=== PATIENT | female | born 1995 | race Caucasian/White ===

== ENCOUNTER 2016-09-08 03:53 | Emergency (ER) | payer BC, MEDICAID ==
[2016-09-08 04:12] VITALS: BP 138/88
[2016-09-08] MEDS ORDERED: cefTRIAXone 1 GM, Lidocaine 1% 2.1 ML IM ONE ×2 (04:27)
--- NOTE | 2016-09-08 04:34 | EDM.PDOC ---
ED HPI GENERAL MEDICAL PROBLEM - General Chief Complaint: ENT Problem Stated Complaint: RT EAR INFECTION / FELT LIKE EARDRUM BROKE Time Seen by Provider: 09/08/16 04:29 Source of Information: Reports: Patient, Family History Limitations: Reports: No Limitations - History of Present Illness INITIAL COMMENTS - FREE TEXT/NARRATIVE: pt arrived with severe pain in the left ear. She noted blood from theear canal. 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 ) Respiratory: Reports: No Symptoms Cardiovascular: Reports: No Symptoms Endocrine: Reports: No Symptoms GI/Abdominal: Reports: No Symptoms : Reports: No Symptoms Musculoskeletal: Reports: No Symptoms ED EXAM, ENT - Physical Exam Exam: See Below Text/Narrative:: Pt arrived with severe pain in the rt ear. This started yestrday. Exam Limited By: No Limitations General Appearance: Alert, Moderate Distress Ears: Other ( rt ear drum is red. there is bloody drainage and probably a small perforation, The left drum is also red and has some blood behind the drum. ) Nose: Normal Inspection Mouth/Throat: Normal Inspection Head: Atraumatic Course - Vital Signs Last Recorded V/S: Last Vital Signs Temp 36.3 C 09/08/16 04:10 Pulse 67 09/08/16 04:10 Resp 16 09/08/16 04:10 BP 138/88 09/08/16 04:10 Pulse Ox 96 09/08/16 04:10 - Orders/Labs/Meds Meds: Medications Discontinued Medications Generic Name Dose Route Start Last Admin Trade Name Freq PRN Reason Stop Dose Admin Ceftriaxone Sodium 1 gm/ 0 gm 09/08/16 04:27 Lidocaine HCl 2.1 ml IM 09/08/16 04:28 ONETIME ONE - Re-Assessments/Exams Free Text/Narrative Re-Assessment/Exam: 09/08/16 04:34 pt ws given rocephn 1 gm. Departure - Departure Time of Disposition: 04:34 Disposition: Home, Self-Care 01 Condition: Fair Clinical Impression: Bilateral otitis media, Perforation of ear drum - Discharge Information Forms: ED Department Discharge Care Plan Goals: augmentin 875 bid. motrin 600mg q6h prn for pain see regular in 7-8 days to recheck the ears.
[2016-09-08] MEDS ORDERED: Acetaminophen/HYDROcodone 325-5 MG Tab PO ONE (04:36)
== END 2016-09-08 04:53 | disposition home or self-care (01) ==
LOC: JP.ED 03:53
DX: H66.93 Otitis media, unspecified, bilateral (principal); H72.93 Unspecified perforation of tympanic membrane, bilateral
CPT/HCPCS: 96372; 99283; A9270; J0696

== ENCOUNTER 2017-06-21 06:11 | Emergency (ER) | payer BC, MEDICAID ==
[2017-06-21 06:27] VITALS: BP 148/63
[2017-06-21] MEDS ORDERED: Ondansetron 4 MG Tab.DIS PO ONE (06:36)
[2017-06-21] MEDS ORDERED: Ketorolac 60 MG/2 ML SDV IM ONE (06:41)
--- NOTE | 2017-06-21 06:50 | EDM.PDOC ---
ED HPI GENERAL MEDICAL PROBLEM - General Chief Complaint: ENT Problem Stated Complaint: HEADACHE Time Seen by Provider: 06/21/17 06:35 Source of Information: Reports: Patient, Old Records, RN History Limitations: Reports: No Limitations - History of Present Illness INITIAL COMMENTS - FREE TEXT/NARRATIVE: 22 yo female had her wisdom teeth out this past Friday and is taking hydrocodone and ibuprofen for that pain with good results. Now has a MORALES with nausea and vomiting that is not relieved with these meds so comes to the ER. The last ibuprofen dose was 10 pm last night. Has nothing for nausea relief. No fever. Is a little light-headed with standing. Onset: Gradual Onset Date: 06/20/17 Duration: Day(s): (1) Location: Reports: Head Quality: Reports: Ache Severity: Moderate Improves with: Reports: None Worsens with: Reports: Other (? time) Context: Reports: Other (taking hydrodone without relief. ) Associated Symptoms: Reports: Headaches, Nausea/Vomiting. Denies: Fever/Chills Treatments KENNEL HAND: Reports: Other (see below) (none in last 8.5 hrs. ) mouth Pain Score (Numeric/FACES): 10 - Related Data Allergies Allergy/AdvReac Type Severity Reaction Status Date / Time No Known Allergies Allergy Verified 06/21/17 06:18 Home Meds: Home Meds Amoxicillin 500 mg PO TID 06/21/17 [History] Citalopram Hydrobromide [Celexa] 40 mg PO DAILY 06/21/17 [History] Hydrocodone/Acetaminophen [Hydrocodon-Acetaminophen 5-325] 1 tab PO ASDIRECTED PRN 06/21/17 [History] Levothyroxine 125 mcg PO DAILY 06/21/17 [History] Ondansetron [Zofran ODT] 4 mg PO Q6H PRN #7 tab.dis 06/21/17 [Rx] Past Medical History HEENT History: Reports: Other (See Below) Other HEENT History: hx of ear infections recurrent 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: Neurological History: Reports: Concussion Psychiatric History: Reports: Anxiety Endocrine/Metabolic History: Reports: Hyperthyroidism, Obesity/BMI 30+ - Past Surgical History HEENT Surgical History: Reports: Oral Surgery Female Surgical History: Reports: Other (See Below) Other Female Surgeries/Procedures: salpingoectomy Social & Family History - Tobacco Use Smoking Status *Q: Never Smoker - Caffeine Use Caffeine Use: Reports: Coffee, Soda - Recreational Drug Use Recreational Drug Use: No ED ROS ENT - Review of Systems Review Of Systems: See Below Constitutional: Reports: No Symptoms HEENT: Reports: No Symptoms Respiratory: Reports: No Symptoms Cardiovascular: Reports: No Symptoms, Lightheadedness (mild) GI/Abdominal: Reports: Nausea, Other : Reports: No Symptoms Musculoskeletal: Reports: No Symptoms Skin: Reports: No Symptoms Neurological: Reports: Headache Psychiatric: Reports: No Symptoms ED EXAM, ENT - Physical Exam Exam: See Below Exam Limited By: No Limitations General Appearance: Alert, WD/WN, No Apparent Distress Eye Exam: Bilateral Eye: Normal Inspection, PERRL Ears: Normal External Exam, Normal Canal, Hearing Grossly Normal, Normal TMs Nose: Normal Inspection Mouth/Throat: Normal Inspection, Normal Oropharynx, Other (no facial swelling). No: Dental Pain, Dental Tenderness, Throat Swelling, Tongue Swelling Head: Atraumatic, Normocephalic. No: Facial Swelling, Facial Tenderness Neck: Normal Inspection, Supple, Non-Tender Respiratory/Chest: No Respiratory Distress, Lungs Clear, Normal Breath Sounds, No Accessory Muscle Use Cardiovascular: Regular Rate, Rhythm, No Edema GI/Abdominal: Normal Bowel Sounds, Soft Extremities: Normal Inspection Neurological: Alert, Oriented, CN II-XII Intact, Normal Cognition, No Motor/ Sensory Deficits Psychiatric: Normal Affect, Normal Mood Skin: Warm, Dry, Intact, Normal Color, No Rash Lymphatic: No Adenopathy Course - Vital Signs Text/Narrative:: Toradol 60 mg IM, Zofran ODT 4 mg SL Last Recorded V/S: Last Vital Signs Temp 36.7 C 06/21/17 06:25 Pulse 80 06/21/17 06:25 Resp 17 06/21/17 06:25 BP 148/63 H 06/21/17 06:25 Pulse Ox 97 06/21/17 06:25 - Orders/Labs/Meds Meds: Medications Discontinued Medications Generic Name Dose Route Start Last Admin Trade Name Freq PRN Reason Stop Dose Admin Ketorolac Tromethamine 60 mg 06/21/17 06:41 Toradol IM 06/21/17 06:42 ONETIME ONE Ondansetron HCl 4 mg 06/21/17 06:36 06/21/17 06:42 Zofran Odt PO 06/21/17 06:37 4 mg ONETIME ONE Administration Departure - Departure Time of Disposition: 06:53 Disposition: Home, Self-Care 01 Condition: Fair Clinical Impression: Headache Qualifiers: Headache type: unspecified Headache chronicity pattern: acute headache Intractability: not intractable Qualified Code(s): R51 - Headache - Discharge Information Prescriptions: Ondansetron [Zofran ODT] 4 mg PO Q6H PRN #7 tab.dis PRN Reason: Nausea Referrals: PCP,None [Primary Care Provider] - Forms: ED Department Discharge Additional Instructions: Take Zofran as directed for nausea relief. Try taking acetaminophen 1000 mg every 6 hrs and ibuprofen 600 mg every 6 hrs with food instead of the hydrocodone for pain relief. Drink enough fluids so that your urine is light yellow in color, this alone will decrease MORALES. Rest today. Recheck in the cliniic if not improving.
== END 2017-06-21 07:02 | disposition home or self-care (01) ==
LOC: JP.ED 06:11
DX: R51 Headache (principal); E03.9 Hypothyroidism, unspecified; E66.9 Obesity, unspecified; Z79.899 Other long term (current) drug therapy
CPT/HCPCS: 96372; 99284; A9270; J1885

== ENCOUNTER 2017-06-27 16:50 | Emergency (ER) | payer BC, MEDICAID ==
[2017-06-27 17:51] VITALS: BP 136/66
[2017-06-27] MEDS ORDERED: Lidocaine 1% with EPINEPHrine 1:100,000 50 ML MDV INFILT STA (18:29)
--- NOTE | 2017-06-27 18:35 | EDM.PDOC ---
ED HPI GENERAL MEDICAL PROBLEM - General Chief Complaint: ENT Problem Stated Complaint: MOUTH BLEEDING Time Seen by Provider: 06/27/17 18:15 Source of Information: Reports: Patient History Limitations: Reports: No Limitations - History of Present Illness INITIAL COMMENTS - FREE TEXT/NARRATIVE: Shante presents today with complaints of bleeding status post wisdom teeth removal. She reports bleeding from her left lower site since 0300 today. She states she has tried to pack the area to help. She denies trauma or injury, eating sharp/cruchy food. 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: Neurological History: Reports: Concussion Psychiatric History: Reports: Anxiety Endocrine/Metabolic History: Reports: Hyperthyroidism, Obesity/BMI 30+ - Past Surgical History HEENT Surgical History: Reports: Oral Surgery Female Surgical History: Reports: Tubal Ligation, Other (See Below) Other Female Surgeries/Procedures: salpingoectomy Social & Family History - Tobacco Use Smoking Status *Q: Never Smoker - Caffeine Use Caffeine Use: Reports: Coffee, Soda ED ROS ENT - Review of Systems Review Of Systems: See Below Constitutional: Denies: Fever, Chills HEENT: Reports: Other (She complains of bleeding to left lower wisdom tooth removal and pain to site with packing). Denies: Ear Pain, Throat Pain, Throat Swelling Respiratory: Denies: Shortness of Breath, Wheezing, Cough, Sputum, Hemoptysis Cardiovascular: Reports: No Symptoms Endocrine: Reports: No Symptoms GI/Abdominal: Reports: No Symptoms : Reports: No Symptoms Musculoskeletal: Reports: No Symptoms Skin: Reports: No Symptoms Neurological: Reports: No Symptoms Psychiatric: Reports: No Symptoms Hematologic/Lymphatic: Reports: No Symptoms Immunologic: Reports: No Symptoms ED EXAM, ENT - Physical Exam Exam: See Below Text/Narrative:: Shante is an alert and oriented 22 year old female presenting with bleeding to left lower wisdom tooth removal site since 030. Exam Limited By: No Limitations General Appearance: Alert, WD/WN, Mild Distress Eye Exam: Bilateral Eye: EOMI, Normal Inspection, PERRL Ears: Normal External Exam, Normal Canal, Hearing Grossly Normal, Normal TMs Nose: Normal Inspection, Normal Mucousa, No Blood Mouth/Throat: Normal Lips, Normal Oropharynx, Gum Swelling, Other (constant oozing of blood to left lower wisdom tooth extraction site. Oter 3 sites intact , no dry socket noted. ). No: Pharyngeal Erythema, Throat Pain, Throat Swelling , Tongue Swelling, Tonsillar Erythema, Tonsillar Exudates, Tonsillar Swelling Head: Atraumatic, Normocephalic Neck: Normal Inspection, Supple, Non-Tender, Full Range of Motion. No: Lymphadenopathy (R), Lymphadenopathy (L) Respiratory/Chest: No Respiratory Distress, Lungs Clear, Normal Breath Sounds, No Accessory Muscle Use, Chest Non-Tender Cardiovascular: Normal Peripheral Pulses, Regular Rate, Rhythm, No Edema, No Gallop, No Murmur, No Rub Back: Normal Inspection, Full Range of Motion. No: CVA Tenderness (R), CVA Tenderness (L) Extremities: Normal Inspection, Normal Range of Motion, Non-Tender, No Pedal Edema, Normal Capillary Refill Neurological: Alert, Oriented, CN II-XII Intact, Normal Cognition, Normal Gait, Normal Reflexes, No Motor/Sensory Deficits Psychiatric: Normal Affect, Normal Mood Skin: Warm, Dry, Intact, Normal Color, No Rash Lymphatic: No Adenopathy Course - Vital Signs Last Recorded V/S: Last Vital Signs Temp 36.6 C 06/27/17 18:15 Pulse 100 06/27/17 18:15 Resp 14 06/27/17 18:15 BP 136/66 06/27/17 18:15 Pulse Ox 98 06/27/17 18:15 - Orders/Labs/Meds Meds: Medications Discontinued Medications Generic Name Dose Route Start Last Admin Trade Name Freq PRN Reason Stop Dose Admin Lidocaine/Epinephrine 10 ml 06/27/17 18:29 06/27/17 18:46 Xylocaine 1% With Epinephrine 1:100,000 INFILT 06/27/17 18:30 10 ml NOW STA Administration - Re-Assessments/Exams Free Text/Narrative Re-Assessment/Exam: 06/27/17 18:20 Bleeding site of extraction packed with damp 2x2 gauze and patient instructed to maintain pressure. 06/27/17 18:50 2x2 gauze soaked with lidocaine with epi applied to extraction site. 06/27/17 19:20 We will pack extraction area with surgicel. 06/27/17 19:29 No bleeding noted. Patient will be discharged, use of tea bags as needed. Departure - Departure Time of Disposition: 19:29 Disposition: Home, Self-Care 01 Condition: Good Clinical Impression: Bleeding, History of recent dental procedure - Discharge Information Instructions: Dental Extraction, [id number] Referrals: Mary Moss NP [Primary Care Provider] - Forms: ED Department Discharge Additional Instructions: You have been evaluated and treated for bleeding of recent left lower dental extraction. Avoid sharp, crunchy foods, alcohol, tobacco. Avoid straws. Use acetaminophen and pain medication as directed. Use tea bags as instructed to area to prevent bleeding. Return to your dentist as instructed. Follow up with your primary provider in 3 to 7 days for recheck. Return for worsening, issues or concerns. - Assessment/Plan Assessment:: Bleeding of dental extraction site Recent dental procedure Plan: Patient evaluated and treated for bleeding of recent left lower dental extraction. Avoid sharp, crunchy foods, alcohol, tobacco. Avoid straws. Use acetaminophen and pain medication as directed. Use tea bags as instructed to area to prevent bleeding. Return to scheduled dentist as instructed. Follow up with primary provider in 3 to 7 days for recheck. Return for worsening, issues or concerns.
== END 2017-06-27 19:45 | disposition home or self-care (01) ==
LOC: JP.ED 16:50
DX: K91.841 Postprocedural hemorrhage of a digestive system organ or structure following other procedure (principal); E05.90 Thyrotoxicosis, unspecified without thyrotoxic crisis or storm; Z79.899 Other long term (current) drug therapy
CPT/HCPCS: 99283

== ENCOUNTER 2019-05-30 09:44 | Emergency (ER) | payer BC, MEDICAID ==
[2019-05-30] MEDS ORDERED: methylPREDNISolone Sodium Succinate 125 MG/2 ML SDV IM ONE (10:24)
--- NOTE | 2019-05-30 10:31 | EDM.PDOC ---
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 She had been doing well but this morning woke up with a widespread maculopapular, blanching and very pruritic rash. No shortness of breath, fever, nausea or vomiting or other complaints. No previous history of allergic reactions to medications. Onset: Unknown/Unsure (Woke up with symptoms) Associated Symptoms: Reports: No Other Symptoms - Related Data Allergies Allergy/AdvReac Type Severity Reaction Status Date / Time No Known Allergies Allergy Verified 05/30/19 10:08 Home Meds: Home Meds Citalopram Hydrobromide [Celexa] 40 mg PO DAILY 06/21/17 [History] Levothyroxine 125 mcg PO DAILY 06/21/17 [History] Ondansetron [Zofran ODT] 4 mg PO Q6H PRN #7 tab.dis 06/21/17 [Rx] Ciprofloxacin HCl [Cipro] 500 mg PO BID 05/30/19 [History] metroNIDAZOLE [Flagyl] 500 mg PO Q8H 05/30/19 [History] Past Medical History HEENT History: Reports: Other (See Below) Other HEENT History: hx of ear infections recurrent 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: Neurological History: Reports: Concussion Psychiatric History: Reports: Anxiety Endocrine/Metabolic History: Reports: Hyperthyroidism, Obesity/BMI 30+ - Past Surgical History HEENT Surgical History: Reports: Oral Surgery Female Surgical History: Reports: Tubal Ligation, Other (See Below) Other Female Surgeries/Procedures: salpingoectomy Social & Family History - Tobacco Use Smoking Status *Q: Never Smoker Second Hand Smoke Exposure: No - Caffeine Use Caffeine Use: Reports: Coffee, Energy Drinks, Soda - Recreational Drug Use Recreational Drug Use: No ED ROS GENERAL - Review of Systems Review Of Systems: See Below Constitutional: Reports: Malaise. Denies: Fever, Chills HEENT: Reports: No Symptoms Respiratory: Denies: Shortness of Breath, Wheezing Cardiovascular: Denies: Chest Pain GI/Abdominal: Denies: Nausea, Vomiting Skin: Reports: Rash Neurological: Reports: No Symptoms Psychiatric: Reports: Anxiety ED EXAM, SKIN/RASH Exam: See Below Exam Limited By: No Limitations General Appearance: Alert, No Apparent Distress (Patient is uncomfortable but not distressed) Throat/Mouth: Normal Inspection Respiratory/Chest: No Respiratory Distress, Lungs Clear Cardiovascular: Regular Rate, Rhythm Extremities: No: Pedal Edema Neurological: Alert, Oriented Skin: Other (Patient has a widespread asymmetric erythematous rash which is blanching, mostly on the trunk but extending onto the extremities.) Course - Vital Signs Last Recorded V/S: Last Vital Signs Temp 99.0 F 05/30/19 10:21 Pulse 72 05/30/19 10:55 Resp 16 05/30/19 10:55 BP 138/79 05/30/19 10:55 Pulse Ox 99 05/30/19 10:02 - Orders/Labs/Meds Meds: Medications Discontinued Medications Generic Name Dose Route Start Last Admin Trade Name Wanda PRN Reason Stop Dose Admin Methylprednisolone Sodium Succinate 125 mg 05/30/19 10:24 05/30/19 10:31 Solu-Medrol IM 05/30/19 10:25 125 mg ONETIME ONE Administration - Re-Assessments/Exams Free Text/Narrative Re-Assessment/Exam: 05/30/19 10:29 Likely developed an allergy to either the metronidazole or the Cipro. She was given 125 mg of Solu-Medrol IM and will continue on a Medrol Dosepak and Benadryl 50 mg every 4-6 hours until symptoms improved. She should stop both antibiotics and recheck if not improving satisfactorily despite treatment. Departure - Departure Time of Disposition: 10:56 Disposition: Home, Self-Care 01 Clinical Impression: Allergic drug rash - Discharge Information Instructions: Hives, [id number] Referrals: Mary Moss CALL OUT CLERK [Primary Care Provider] - Forms: ED Department Discharge Care Plan Goals: Take Medrol Dosepak as prescribed on the package, start this evening if not improving later this afternoon, otherwise start tomorrow morning. Benadryl 50 mg every 4-6 hours will be helpful, and return anytime if worsening such as difficulty breathing. Stop antibiotics. Sepsis Event Note - Evaluation Sepsis Screening Result: No Definite Risk - Focused Exam Vital Signs: Vital Signs Temp Pulse Resp BP Pulse Ox 05/30/19 10:55 72 16 138/79 05/30/19 10:21 99.0 F 66 17 129/76 05/30/19 10:02 97.0 F 66 17 129/76 99 Date Exam was Performed: 05/30/19 Time Exam was Performed: 11:49
[2019-05-30 10:58] VITALS: BP 138/79; PULSE 72
== END 2019-05-30 10:56 | disposition home or self-care (01) ==
LOC: JP.ED 09:44
DX: L27.0 Generalized skin eruption due to drugs and medicaments taken internally (principal); E05.90 Thyrotoxicosis, unspecified without thyrotoxic crisis or storm; E66.9 Obesity, unspecified; Z68.41 Body mass index [BMI] 40.0-44.9, adult; T36.8X5A Adverse effect of other systemic antibiotics, initial encounter; T37.8X5A Adverse effect of other specified systemic anti-infectives and antiparasitics, initial encounter; Z79.899 Other long term (current) drug therapy
CPT/HCPCS: 96372; 99282; J2930

== ENCOUNTER 2020-07-02 09:19 | Emergency (ER) | payer MEDICAID ==
[2020-07-02 09:30] VITALS: BP 150/81; PULSE 88
--- NOTE | 2020-07-02 09:47 | EDM.PDOC ---
ED HPI GENERAL MEDICAL PROBLEM - General Chief Complaint: Eye Problems Stated Complaint: POSSIBLE PINKEYE Time Seen by Provider: 07/02/20 09:40 Source of Information: Reports: Patient, Old Records History Limitations: Reports: No Limitations - History of Present Illness INITIAL COMMENTS - FREE TEXT/NARRATIVE: 25 yo female presents concerned she has pink eye. She awoke today with slightly itchy eyes bilaterally and a slightly puffy upper R eyelid. One of her daughters was recently seen in the clinic and put on antibiotics for "pink eye". 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) (none) - Related Data Allergies Allergy/AdvReac Type Severity Reaction Status Date / Time No Known Allergies Allergy Verified 07/02/20 09:26 Home Meds: Home Meds Citalopram Hydrobromide [Celexa] 40 mg PO DAILY 06/21/17 [History] Levothyroxine 125 mcg PO DAILY 06/21/17 [History] Past Medical History HEENT History: Reports: Otitis Media, Other (See Below) Other HEENT History: hx of ear infections recurrent 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: , 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: Neurological History: Reports: Concussion Psychiatric History: Reports: Anxiety Endocrine/Metabolic History: Reports: Hyperthyroidism, Obesity/BMI 30+ - Past Surgical History HEENT Surgical History: Reports: Oral Surgery Female Surgical History: Reports: Tubal Ligation, Other (See Below) Other Female Surgeries/Procedures: salpingoectomy Social & Family History - Tobacco Use Tobacco Use Status *Q: Never Tobacco User - Caffeine Use Caffeine Use: Reports: Coffee - Recreational Drug Use Recreational Drug Use: No ED ROS GENERAL - Review of Systems Review Of Systems: See Below Constitutional: Reports: No Symptoms HEENT: Reports: Other (slight bilat eye redness and mild itching with R upper lid a little puffy) Respiratory: Reports: No Symptoms Cardiovascular: Reports: No Symptoms Skin: Reports: No Symptoms ED EXAM GENERAL W FULL EYE - Physical Exam Exam: See Below Exam Limited By: No Limitations General Appearance: Alert, WD/WN, No Apparent Distress, Obese Eye Exam: Bilateral Eye: Conjunctival Injection (very minimal, no drainage) Conjunctiva & Sclera: Bilateral: Injected (subtle) Cornea Exam: Bilateral: Normal Appearance Extraocular Movements: Bilateral: Intact Pupils: Normal Accommodation Pupillary Size: Bilateral: 3 mm Ears: Normal External Exam, Normal Canal, Hearing Grossly Normal. No: Hearing Loss Nose: Normal Inspection, No Blood Throat/Mouth: Normal Inspection, Normal Lips, Normal Voice, No Airway Compromise Head: Atraumatic, Normocephalic Respiratory/Chest: No Respiratory Distress, No Accessory Muscle Use Neurological: Alert, Oriented, CN II-XII Intact, Normal Cognition, No Motor/Sensory Deficits Psychiatric: Normal Affect, Normal Mood Skin Exam: Warm, Dry, Intact, Normal Color, No Rash Course - Vital Signs Text/Narrative:: R upper lid was inverted, no sign of developing hordeolum. Last Recorded V/S: Last Vital Signs Temp 36.3 C 07/02/20 09:29 Pulse 88 07/02/20 09:29 Resp 14 07/02/20 09:29 BP 150/81 H 07/02/20 09:29 Pulse Ox 96 07/02/20 09:29 Departure - Departure Time of Disposition: 09:48 Disposition: Home, Self-Care 01 Condition: Good Clinical Impression: Allergic conjunctivitis Qualifiers: Laterality: bilateral Qualified Code(s): H10.13 - Acute atopic conjunctivitis, bilateral - Discharge Information *PRESCRIPTION DRUG MONITORING PROGRAM REVIEWED*: Not Applicable *COPY OF PRESCRIPTION DRUG MONITORING REPORT IN PATIENT MARY: Not Applicable Instructions: Allergic Conjunctivitis, Adult, [id number] Referrals: PCP,None [Primary Care Provider] - Forms: ED Department Discharge Additional Instructions: Take cetirizine 10 mg daily until pollen season is over. Wash your hands often and avoid touching your eyes. Consider adding Zaditor eye drops for quicker relief. Recheck if worse. Sepsis Event Note (ED) - Evaluation Sepsis Screening Result: No Definite Risk - Focused Exam Vital Signs: Vital Signs Temp Pulse Resp BP Pulse Ox 07/02/20 09:29 36.3 C 88 14 150/81 H 96
== END 2020-07-02 09:56 | disposition home or self-care (01) ==
LOC: JP.ED 09:19
DX: H10.13 Acute atopic conjunctivitis, bilateral (principal); E05.90 Thyrotoxicosis, unspecified without thyrotoxic crisis or storm; E66.9 Obesity, unspecified; Z68.41 Body mass index [BMI] 40.0-44.9, adult
CPT/HCPCS: 99282